=== PATIENT | male | born 1990 | race African-American/Black ===

== ENCOUNTER 2022-03-31 11:53 | Outpatient (REF) | payer MEDICAID, OTHER, SELFPAY ==
--- NOTE | ~2022-03-31 | XR_ITS ---
EXAMINATION: XR LUMBOSACRAL SPINE CLINICAL INFORMATION: Low back pain. COMPARISON: None TECHNIQUE: Three views of the lumbosacral spine. FINDINGS: There is normal lumbar lordosis. The vertebral heights, alignment and disc heights are normal. There is no visible acute fracture, dislocation or subluxation. SI joints are symmetrical and normal. XR/XR lumbar spine 2-3V IMPRESSION: Unremarkable lumbar spine exam.
== END 2022-03-31 11:54 | disposition home or self-care (01) ==
LOC: HO.XRAY 11:53
PROVIDERS: Visit Provider Internal Medicine
DX: M54.50 Low back pain, unspecified (principal)
CPT/HCPCS: 72100

== ENCOUNTER 2023-09-04 13:40 | Outpatient (REF) | payer MEDICAID, OTHER, SELFPAY ==
[2023-09-05 03:46] LABS: CT PCR NOT DETECTED (Not Detect.); NG PCR NOT DETECTED (Not Detect.)
[2023-09-05 13:55] LABS: Syphilis Screen Nonreactive (Nonreactive)
[2023-09-07 03:44] LABS: HIV AB/AG Nonreactive (Nonreactive); HIV Num 1 0.08 S/CO (0.00-0.99)
== END 2023-09-04 13:41 | disposition home or self-care (01) ==
LOC: HO.CHCLDS 13:40
PROVIDERS: Visit Provider Internal Medicine
DX: Z11.4 Encounter for screening for human immunodeficiency virus [HIV] (principal); N48.9 Disorder of penis, unspecified; Z20.2 Contact with and (suspected) exposure to infections with a predominantly sexual mode of transmission
CPT/HCPCS: 0353U; 36415; 86780; 87389

== ENCOUNTER 2023-09-21 12:53 | Outpatient (REF) | payer MEDICAID, OTHER, SELFPAY ==
[2023-09-21 14:26] LABS: Appearance Urine Clear; Color Urine Yellow; Glucose Urine UA Negative (Negative); Leukocyte Esterase Urine Negative (Negative); Nitrite Urine Negative (Negative); PH 5.5 (5.0-9.0); Urine Blood Negative (Negative); Urine Ketones Negative (Negative); Urine Protein Negative (Neg-Trace)
[2023-09-21 14:29] LABS: Bacteria Urine None Seen (None Seen); Hyaline Casts Urine 0-2 /LPF (0-2); RBC Urine 0-2 /HPF (0-2); Squamous Epithelial Cell Urine 0-2 /HPF (0-2); WBC Urine 0-5 /HPF (0-5)
[2023-09-21 14:52] LABS: Alanine Aminotransferase 52 U/L (0-40); Albumin Level 4.4 g/dL (3.5-5.0); Alkaline Phosphatase 106 U/L (39-117); Anion Gap 9 (12-20); Aspartate Amino Transferase 38 U/L (5-37); Bilirubin Total 0.7 mg/dL (0.0-1.0); Blood Urea Nitrogen 12 mg/dL (9-16); Calcium 9.5 mg/dL (8.4-10.2); Carbon Dioxide 29 mmol/L (22-29); Chloride 105 mmol/L (96-108); Estimated Glomerular Filt Rate > 60; Glucose Random 93 mg/dL (60-115); Potassium 4.1 mmol/L (3.3-5.1); Sodium 139 mmol/L (135-145); Total Protein 7.8 g/dL (6.5-8.0)
== END 2023-09-21 12:54 | disposition home or self-care (01) ==
LOC: HO.CHCLDS 12:53
PROVIDERS: Visit Provider Internal Medicine
DX: N26.1 Atrophy of kidney (terminal) (principal)
CPT/HCPCS: 36415; 80053; 81001

== ENCOUNTER 2023-10-23 10:19 | Outpatient (REF) | payer MEDICAID, OTHER, SELFPAY ==
--- NOTE | ~2023-10-23 | US_ITS ---
EXAMINATION: US RETROPERITONEAL LIMITED (RENAL ONLY) CLINICAL INFORMATION: Atrophy of kidney (terminal). COMPARISON: None available. TECHNIQUE: Real-time imaging of the kidneys. FINDINGS: RIGHT KIDNEY: The right kidney is suboptimally visualized. Right kidney is suspected to measure approximately 5.3 x 3.0 x 1.8 cm (SAG x AP x TRV). There appears to be diffuse cortical thinning with overall increased echogenicity of the right kidney. No renal calculi or hydronephrosis. LEFT KIDNEY: 14.5 x 7.0 x 6.1 cm (SAG x AP x TRV). The kidney is normal in size, contour, and echogenicity. Renal cortical thickness is normal. No calculi or focal parenchymal lesions. No hydronephrosis. US/US renal BI IMPRESSION: 1. Atrophic right kidney, suboptimally visualized. 2. No renal calculi or hydronephrosis of either kidney.
== END 2023-10-23 10:20 | disposition home or self-care (01) ==
LOC: HO.US 10:19
PROVIDERS: PCP Internal Medicine; Visit Provider Internal Medicine
DX: N26.1 Atrophy of kidney (terminal) (principal)
CPT/HCPCS: 76775